=== PATIENT | male | born 1965 | race Caucasian/White ===

== ENCOUNTER 2021-01-15 19:51 | Emergency (ER) | payer MEDICARE, MEDICAID ==
[~2021-01-15] VITALS: Ht 175.3 cm; Wt 68.2 kg
[~2021-01-15 19:51] MED LIST: BENZ2TAB58 GT; CALC-126 PO; CLOZ100T29 PO; DOCU250C28 PO; LAMO200T PO; OMEP20TA2 PO; PALI3TAB14 PO; PHEN100C23 PO; VIT1TABL7 PO
[2021-01-15] MEDS ORDERED: IBUPROFEN 600 MG TABLET PO ONE (20:30)
[2021-01-15] MEDS ORDERED: LORazepam 1 MG TABLET PO ONE (20:30)
[2021-01-15] MEDS ORDERED: METF-960 PO (20:46)
[2021-01-15] MEDS ORDERED: LEVO25TA9 PO (20:46)
[2021-01-15] MEDS ORDERED: ESCI-8 PO (20:46)
[2021-01-15] MEDS ORDERED: ATOR10TA84 PO (20:46)
[2021-01-15] MEDS ORDERED: MULT-1203 PO (20:46)
[2021-01-15] MEDS ORDERED: OS500 PO (20:46)
[2021-01-15] MEDS ORDERED: VITA400T9 PO (20:46)
[2021-01-15] MEDS ORDERED: LAMO200T PO (20:46)
[2021-01-15] MEDS ORDERED: LEVE500T53 PO (20:46)
[2021-01-15] MEDS ORDERED: CLOZ100T32 PO (20:47)
[2021-01-15] MEDS ORDERED: FISH1CAP27 PO (20:47)
[2021-01-15] MEDS ORDERED: CLOZ25TA5 PO (20:47)
[2021-01-15 20:48] LABS: BASOPHILS % (AUTO) 0.2 % (0.0-2.0); EOSINOPHILS % (AUTO) 0 % (1.0-6.0); HEMATOCRIT 43.4 % (41-53); HEMOGLOBIN 14.3 g/dL (13.5-17.5); LYMPHOCYTES # (AUTO) 2.7 K/uL (1.0-4.8); LYMPHOCYTES % (AUTO) 47.7 % (22.0-44.0); MEAN CORPUSCULAR HEMOGLOBIN 28.7 pg (26.0-34.0); MEAN CORPUSCULAR VOLUME 87 fL (80-100); MONOCYTES # (AUTO) 0.4 K/uL (0.1-1.0); MONOCYTES % (AUTO) 6.3 % (2.0-9.0); NEUTROPHILS # (AUTO) 2.6 K/uL (1.8-7.7); NEUTROPHILS % (AUTO) 45.8 % (40.0-70.0); PLATELET COUNT (AUTO) 124 K/uL (150-450); RED BLOOD CELL COUNT(AUTO) 4.98 MIL/uL (4.50-5.90); RED CELL DISTRIBUTION WIDTH 13.9 % (11.5-14.5)
[2021-01-15 20:54] LABS: GLUCOMETER DEV NAME(LOC) ERT.5; GLUCOSE,POINT OF CARE 161 MG/DL (70-110)
[2021-01-15 20:57] LABS: ANION GAP 13 mmol/L (8-16); CALCIUM, TOTAL 9.2 mg/dL (8.8-10.5); CARBON DIOXIDE 27 mmol/L (22-29); CHLORIDE 102 mmol/L (98-107); CREATININE 0.83 mg/dL (0.60-1.30); GLOMERULAR FILTR. RATE CALC > 60 mL/min (>60); GLUCOSE,RANDOM 170 mg/dL (70-110); POTASSIUM 3.8 mmol/L (3.5-5.1); SODIUM SERUM 142 mmol/L (136-145); UREA NITROGEN, BLOOD 15 mg/dL (7-18)
[2021-01-15 21:03] LABS: ALANINE AMINOTRANSFERASE 33 U/L (12-78); ALBUMIN 3.5 g/dL (3.4-5.0); ALKALINE PHOSPHATASE 117 U/L (46-116); ASPARTATE AMINOTRANSFERASE 13 U/L (15-37); BILIRUBIN,TOTAL 0.3 mg/dL (0.1-1.0); TOTAL PROTEIN, SERUM 6.7 g/dL (6.4-8.2)
[2021-01-15 22:15] VITALS: BP 109/71
== END 2021-01-15 22:25 | disposition home or self-care (01) ==
LOC: EMS 19:54
DX: S00.03XA Contusion of scalp, initial encounter (principal); F79 Unspecified intellectual disabilities; E11.65 Type 2 diabetes mellitus with hyperglycemia; M54.2 Cervicalgia; J44.9 Chronic obstructive pulmonary disease, unspecified; K21.9 Gastro-esophageal reflux disease without esophagitis; F20.9 Schizophrenia, unspecified; F17.210 Nicotine dependence, cigarettes, uncomplicated; Z86.69 Personal history of other diseases of the nervous system and sense organs; Z88.0 Allergy status to penicillin; W06.XXXA Fall from bed, initial encounter; Y93.89 Activity, other specified; Y92.89 Other specified places as the place of occurrence of the external cause; Y99.8 Other external cause status
CPT/HCPCS: 70450; 71045; 72125; 80053; 82962; 84484; 85025; 93005; 99285; 36415-L1; 36415-TC